=== PATIENT | male | born 1980 | race Asian ===

== ENCOUNTER 2017-12-04 09:59 | Emergency (ER) | payer MEDICAID ==
[~2017-12-04] VITALS: Ht 180.3 cm; Wt 118.2 kg
[2017-12-04 11:46] VITALS: BP 129/79
== END 2017-12-04 11:56 | disposition home or self-care (01) ==
LOC: EMS 10:03
DX: S01.01XD Laceration without foreign body of scalp, subsequent encounter (principal); R22.0 Localized swelling, mass and lump, head; F12.10 Cannabis abuse, uncomplicated; X58.XXXD Exposure to other specified factors, subsequent encounter